=== PATIENT | female | born 1965 | race Caucasian/White ===

== ENCOUNTER → 2024-02-09 14:29 | Outpatient (BNVA) | payer MEDICARE, SELFPAY | PROVIDERS: PCP Family Medicine; Visit Provider Nurse Practitioner Family | DX: L92.3 Foreign body granuloma of the skin and subcutaneous tissue (principal); D48.5 Neoplasm of uncertain behavior of skin; D23.72 Other benign neoplasm of skin of left lower limb, including hip; L57.0 Actinic keratosis | CPT/HCPCS: 17000; 99203 ==

== ENCOUNTER 2024-11-19 14:25 | Outpatient (CLI) | payer MEDICARE, SELFPAY ==
--- NOTE | 2024-11-19 14:36 | XR_ITS ---
WS: [id number] Exam: XR abdomen 1V* [id number] Date/Time of Exam: 11/19/2024 2:48 PM Reason For Exam: ABDOMINAL PAIN RUQ DLP: No bowel obstruction or pneumoperitoneum. No organ enlargement. Signs of prior cholecystectomy and multiple additional large surgical clips in the upper RIGHT abdomen. Posterior fusion of the spine at L4-5 with hardware. Remaining bony structures are unremarkable. XR/XR abdomen 1V* [id number] IMPRESSION: 1. No acute abdominal process. 2. Postop changes as above.
== END 2024-11-19 14:26 | disposition home or self-care (01) ==
PROVIDERS: PCP Nurse Practitioner Family; Visit Provider Nurse Practitioner Family
DX: R10.11 Right upper quadrant pain (principal)
CPT/HCPCS: 74018